=== PATIENT | female | born 1990 | race Caucasian/White ===

== ENCOUNTER → 2024-10-06 19:42 | Outpatient (REF) | payer BC, SELFPAY | LOC: MRI 3T 19:42 | PROVIDERS: ATTENDING PHYSICIAN Family Medicine | DX: G43.409 Hemiplegic migraine, not intractable, without status migrainosus (principal); Z82.49 Family history of ischemic heart disease and other diseases of the circulatory system | CPT/HCPCS: 70546; 70551; A9585 ==